=== PATIENT | female | born 1955 | race Caucasian/White ===

== ENCOUNTER 2020-12-29 08:17 | Emergency (ER) | payer OTHER ==
[2020-12-29 09:27] LABS: BASOPHIL 1.3 % (0-2); EOSINOPHIL 0.1 % (0-5); HCT 40.2 % (37.0-47.0); HGB 13.1 g/dl (12.5-16.0); MCH 30.2 pg (25.0-31.0); MCHC 32.6 g/dL (32.0-36.0); MCV 92.6 fL (78.0-100.0); MPV 10.4 fL (6.0-9.5); NEUTROPHIL 77.3 % (41-80); NRBC 0; PLT 285 K/uL (150-400); RBC 4.34 M/uL (4.20-5.40); RDW 12.7 % (11.5-14.0)
[2020-12-29 09:56] LABS: BUN/CREAT RATIO (CALC) 16.5 RATIO; CREATININE 0.97 mg/dL (0.51-0.95); MAGNESIUM 2.1 mg/dL (1.8-2.4); POTASSIUM 4.5 mmol/L (3.5-5.1)
[2020-12-29 10:13] LABS: BILIRUBIN NEGATIVE (NEGATIVE); BLOOD 1+ Ery/uL (NEGATIVE); CLARITY CLEAR (CLEAR); COLOR YELLOW (YELLOW); GLUCOSE (U) NORMAL (NORMAL); LEUKOCYTES NEGATIVE Leu/uL (NEGATIVE); NITRITE NEGATIVE (NEGATIVE); PROTEIN NEGATIVE (NEGATIVE); SPECIFIC GRAVITY >=1.030 (1.001-1.030); UROBILINOGEN 0.2 mg/dL (0.2-1.0); pH 5.5 (5.0-9.0)
[2020-12-29 10:19] LABS: BACTERIA TRACE; URINARY WBC RARE
[2020-12-29] MEDS ORDERED: INDERAL20 MG PO (10:49)
== END 2020-12-29 12:12 | disposition home or self-care (01) ==
LOC: FER 08:17
PROVIDERS: Emergency Medicine
DX: I49.3 Ventricular premature depolarization (principal); R31.9 Hematuria, unspecified
CPT/HCPCS: 36415; 71045; 80048; 81001; 83735; 84443; 84484; 85025; 93005